=== PATIENT | male | born 1945 | race African-American/Black ===

== ENCOUNTER → 2018-08-24 | Outpatient (CLI) | payer MEDICARE ==
--- NOTE | 2018-08-24 09:43 | PCVCIMAG ---
EXAM: BILATERAL RENAL ULTRASOUND AND BILATERAL RENAL DUPLEX INDICATION: Hypertension FINDINGS: Right kidney: Length measures 10.5 cm. No hydronephrosis or extensive renal scarring. Right renal duplex: Adequate technical quality. No sonographic evidence of renal artery stenosis. The aortic to renal artery ratio is 1.8. The renal vein is patent. Left kidney: Length measures 9.7 cm. No hydronephrosis or extensive renal scarring. Left renal duplex: Adequate technical quality. 90% restenosis proximal renal artery within prior stent. The aortic to renal artery ratio is 8.0. The renal vein is patent. Bladder: No obvious abnormalities. IMPRESSION: No right renal artery stenosis. Previous right renal artery stent maintaining good patency. 90% restenosis proximal left renal artery within prior stent. LOC:[id number]
== END | disposition home or self-care (01) ==
LOC: PCVCIMAG 08:18
PROVIDERS: ATTEND Internal Medicine Cardiovascular Disease
DX: I70.1 Atherosclerosis of renal artery (principal); I73.9 Peripheral vascular disease, unspecified; I15.0 Renovascular hypertension; N18.9 Chronic kidney disease, unspecified; I25.10 Atherosclerotic heart disease of native coronary artery without angina pectoris; E78.00 Pure hypercholesterolemia, unspecified; Z87.891 Personal history of nicotine dependence; Z72.89 Other problems related to lifestyle; Z79.82 Long term (current) use of aspirin
CPT/HCPCS: 76770; 80061; 93005; 93975; G0463

== ENCOUNTER → 2018-08-27 | Outpatient (CLI) | payer MEDICARE ==
[~2018-08-27] MED LIST: DIAZEPAM 10 MG TABLET. ONE; HEPARIN for SUB-Q USE 5,000 UNIT/ML VIAL. SQ ONE; IOHEXOL 300 MG/ML 100ML VIAL. ONE; IV NORMAL SALINE 1000ML BAG 1,000 ML ONE; LIDOCAINE 1%/EPI 1:100,000 20 ML VIAL. ONE; MIDAZOLAM HCL/PF 2 MG/2 ML VIAL. ONE; fentaNYL PF VIAL 100 MCG/2 ML VIAL ONE; hydrALAZINE 20 MG/ML VIAL. ONE
--- NOTE | 2018-08-27 11:54 | PCVCINTER ---
EXAM: 1. AORTOGRAM AND BILATERAL ILIOFEMORAL ANGIOGRAM 2. BILATERAL RENAL ANGIOGRAPHY 3. LEFT RENAL ARTERY STENT GRAFT PLACEMENT. INDICATION: Peripheral arterial disease. Coronary artery disease. Leg pain. Uncontrolled hypertension. Early restenosis left renal stent.. Renal atherosclerosis. No prior catheter based angiographic study is available. A full diagnostic angiogram study is performed today and the decision to intervene is based on this diagnostic study. PROCEDURE: Procedure and risks of angiography intervention is appropriate including limb loss stroke and were discussed with the patient's family and consent obtained. The patient's right groin was prepped in the normal sterile fashion. IV conscious sedation was used throughout procedure with appropriate monitoring from 11:00 AM through 11:45 AM. Ultrasound was used to interrogate the right groin and showed the right common femoral artery to be patent. A permanent spot film was obtained. Under ultrasound guidance access into the right common femoral artery was obtained and a 5 [place] sheath was placed. Through this a 5 [place] flush catheter was placed into the abdominal aorta at the level of the renal arteries and AP aortogram was performed. Catheter was positioned at the aortic bifurcation and both bilateral iliofemoral angiography was obtained. Catheter was exchanged for a visceral catheter was placed into the right renal arteries and right renal angiograms obtained. Catheter was placed into the the left renal arteries and left renal angiograms were obtained. Patient was given 4500 units of heparin. Stent placement across the areas of high-grade stenosis in the left renal artery stent was carried out with a 6 x 19 [place] VBX stent graft with subsequent dilatation to 6.0 mm. Follow-up angiogram was performed. Catheters and wires removed. Sheath was removed and hemostasis obtained using the FISH device. No immediate complications. FINDINGS: Aortogram: There is one right and one left renal artery both with previous stents in their proximal portion. Mild plaque infrarenal abdominal aorta without significant stenosis. Bilateral iliofemoral angiography: Moderate irregular plaque right common iliac artery without significant stenosis. Left common iliac artery is patent. 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 Mild plaque in the right and left external iliac arteries without significant stenosis. The right and left common femoral and profunda femoral arteries are patent as are the visualized portions of the upper superficial femoral arteries. Right renal artery: Previous stent proximal vessel is widely patent. Left renal artery: 90% restenosis in the proximal renal artery within prior stent. Left renal artery: Following stent graft placement good patency in the left renal artery has been restored. IMPRESSION: 90% restenosis proximal left renal artery stent was treated with stent graft placement with good patency restored. No significant aortoiliac or iliofemoral stenosis seen. LOC:[id number]
== END | disposition home or self-care (01) ==
LOC: PCVCINTER 09:12
PROVIDERS: ATTEND Nuclear Medicine Nuclear Cardiology
DX: I70.1 Atherosclerosis of renal artery (principal); I70.0 Atherosclerosis of aorta; I25.10 Atherosclerotic heart disease of native coronary artery without angina pectoris; I70.293 Other atherosclerosis of native arteries of extremities, bilateral legs; I12.9 Hypertensive chronic kidney disease with stage 1 through stage 4 chronic kidney disease, or unspecified chronic kidney disease; E11.22 Type 2 diabetes mellitus with diabetic chronic kidney disease; N18.9 Chronic kidney disease, unspecified; E78.00 Pure hypercholesterolemia, unspecified; Z87.891 Personal history of nicotine dependence; Z72.89 Other problems related to lifestyle; Z79.899 Other long term (current) drug therapy; Z79.82 Long term (current) use of aspirin; Z79.84 Long term (current) use of oral hypoglycemic drugs
CPT/HCPCS: 36252; 37236; 75630; 76937; 99152; 99153; C1725; C1751; C1760; C1769; C1874; C1894; J0360; J0690; J1644; J2250; J3010; J3490; J7030; Q9967

== ENCOUNTER → 2019-02-27 | Outpatient (CLI) | payer MEDICARE, OTHER ==
--- NOTE | 2019-02-27 16:57 | PCVCIMAG ---
EXAM: BILATERAL RENAL ULTRASOUND AND BILATERAL RENAL DUPLEX INDICATION: Hypertension FINDINGS: Right kidney: Length measures 10.7 cm. No hydronephrosis or extensive renal scarring. Right renal duplex: Adequate technical quality. No sonographic evidence of renal artery stenosis. The aortic to renal artery ratio is 1.3. The renal vein is patent. Left kidney: Length measures 10.0 cm. No hydronephrosis or extensive renal scarring. Left renal duplex: Adequate technical quality. No sonographic evidence of renal artery stenosis. The aortic to renal artery ratio is 1.4. The renal vein is patent. Bladder: No obvious abnormalities. IMPRESSION: No significant renal artery stenosis. No hydronephrosis bilaterally. LOC:[id number]
== END | disposition home or self-care (01) ==
LOC: PCVCIMAG 09:03
PROVIDERS: ATTEND Internal Medicine Cardiovascular Disease
DX: I10 Essential (primary) hypertension (principal)
CPT/HCPCS: 76770; 93975

== ENCOUNTER → 2019-03-21 | Outpatient (CLI) | payer OTHER ==
--- NOTE | 2019-03-21 17:03 | PCVCIMAG ---
APPROVED REPORT Study performed: 03/21/2019 11:54:23 Exam: Stress Echocardiogram Indication: Dyspnea , PAD, CAD s/p PCI, Hypertension,sob Patient Location: Echo lab Stress Nurse: Rona Herrmann RN Room #: 2 Status: routine Ht: 5 ft 4 in HR: 69 bpm BP: 188/84 mmHg Rhythm: NSR Medical History Medical History: CAD s/p stent, PAD, renal stents,renal hyp Medications: bystolic Cardiac Risk Factors: Hyperlipidemia, HTN,renal hypertrophy Previous Cardiac Procedures: PCI Exercise History: Physically active Physical Disabilities: bad ankle and foot, leg buckled as he got off the treadmill Procedure The patient underwent an Exercise Stress Test using the Jeremias Protocol. Blood pressure, heart rate, and EKG were monitored. An Echocardiogram was performed by electronic lab technician in four stages in quad fashion. At peak stress, four selected images were obtained and placed side by side with resting images for comparison. Stress Test Details Stress Test: Exercise stress testing was performed using a Jeremias protocol. HR Resting HR: 66 bpmMax Heart Rate (APMHR): 145 bpm Max HR Achieved: 118 bpmTarget HR (85% APMHR): 123 bpm % of APMHR: 81 Recovery HR: 73 bpm HR response to stress: Normal HR response to stress BP Resting BP: 188/84 mmHg Max BP: 188/74 mmHg Recovery BP: 185/84 mmHg BP response to stress: Abnormal hypertensive response to stress. ECG Resting ECG: Sinus Rhythm Stress ECG: Sinus Rhythm ST Change: Non-ischemic Maximum ST Deviation: -1.15 mm Arrhythmia: Ratre PAC,PVC Recovery ECG: Sinus Rhythm Recovery ST Change: Non-ischemic Recovery Arrhythmia: None Clinical Reason for Termination: Maximal effort Stress Symptoms: dyspnea,fatigue, Exercise duration: 3 min 22 sec Highest Stage Achieved: Stage 2: 2.5 mph at 12% grade. Exercise capacity: 5.4 METs Overall Exercise Capacity for Age: Poor Angina Score: None No complications. No complications. Stress ECG Conclusion The patient exercised according to the JEREMIAS protocol for 3:22 mins; achieving a work level of 5.4METS. The resting heart rate of bpm armani to a maximum heart rate of 121 bpm. This value represents 83 % of the maximal, age-predicted heart rate. The resting blood pressure of 188/84 mmHg, armani to a maximum blood pressure of 188/84 mmHg. The exercise test was stopped due to fatigue,dyspnea . [place] Treadmill Score is 8.8 which is Low risk. Pre-Stress Echo The resting Echocardiogram showed normal left ventricular contractility with an estimated Ejection Fraction of about 50-55%. Normal wall motion in all segments on baseline images. Post-Stress Echo The stress Echocardiogram showed normal left ventricular contractility with an estimated Ejection Fraction of about 65-70%. Normal augmentation of wall motion in all segments on post stress images. Clinical No clinical or ECG evidence for ischemia. Conclusion Clinical Response: Non-ischemic Exercise Capacity: Below Average Stress ECG Response: Non-ischemic Stress Echo Images: Non-ischemic No clinical, EKG or echocardiographic evidence for ischemia. No echocardiographic evidence for exercise induced ischemia. Normal stress echocardiogram with maximal exercise stress. <Conclusion> No clinical, EKG or echocardiographic evidence for ischemia. No echocardiographic evidence for exercise induced ischemia. Normal stress echocardiogram with maximal exercise stress.
== END | disposition home or self-care (01) ==
LOC: PCVCIMAG 10:45
PROVIDERS: ATTEND Internal Medicine Cardiovascular Disease
DX: I73.9 Peripheral vascular disease, unspecified (principal); I25.10 Atherosclerotic heart disease of native coronary artery without angina pectoris; I10 Essential (primary) hypertension
CPT/HCPCS: 93325; 93351